=== PATIENT | female | born 1990 | race Caucasian/White ===

== ENCOUNTER 2019-08-02 19:34 | Outpatient (CLI) | payer OTHER ==
[~2019-08-02] VITALS: Ht 167.6 cm; Wt 140.0 kg
[2019-08-02 19:35] VITALS: BP 138/71
[2019-08-02] MEDS ORDERED: PREN-3 PO (20:01)
[2019-08-02] MEDS ORDERED: ASPI-515 PO (20:01)
== END 2019-08-02 20:20 | disposition home or self-care (01) ==
LOC: LDOP 19:34
PROVIDERS: ATTEND Obstetrics & Gynecology Maternal & Fetal Medicine
DX: O26.892 Other specified pregnancy related conditions, second trimester (principal); R10.9 Unspecified abdominal pain; Z3A.22 22 weeks gestation of pregnancy
CPT/HCPCS: 99201; G0463

== ENCOUNTER 2019-11-09 10:44 | Inpatient (IN) | payer OTHER ==
[~2019-11-09] VITALS: Ht 167.6 cm; Wt 150.0 kg
[~2019-11-09 10:44] MED LIST: ASPI-515 PO; PREN-3 PO
[2019-11-09 11:10] VITALS: BP 141/76
[2019-11-09] MEDS ORDERED: LEVO100T PO (11:18)
[2019-11-09] MEDS ORDERED: LEVO200T PO (11:18)
[2019-11-09] MEDS ORDERED: METF500T17 PO (11:18)
[2019-11-09 11:25] LABS: BASOPHILS # (AUTO) 0.05 x10^3/uL (0-0.1); BASOPHILS % (AUTO) 1 % (0-1); EOSINOPHILS # (AUTO) 0.07 x10^3/uL (0-0.4); EOSINOPHILS % (AUTO) 1 % (1-7); LYMPHOCYTES # (AUTO) 2.31 x10^3/uL (1-3.4); LYMPHOCYTES % (AUTO) 23 % (22-44); MD NO; MEAN CORPUSCULAR HEMOGLOBIN 27.2 pg (27.0-34.8); MEAN CORPUSCULAR VOLUME 82.5 fL (80-100); MEAN PLATELET VOLUME 9.5 fL (7.4-10.4); MONOCYTES % (AUTO) 6 % (2-9); NEUTROPHILS # (AUTO) 6.92 x10^3/uL (1.8-6.8); NEUTROPHILS % (AUTO) 70 % (42-75); PLATELET COUNT 260 x10^3/uL (130-400); RED BLOOD COUNT 4.14 x10^6/uL (3.82-5.3); RED CELL DISTRIBUTION WIDTH 14.9 % (9.6-15.2)
[2019-11-09 11:29] LABS: MICROSCOPIC INDICATED
[2019-11-09 11:31] LABS: CREATININE,URINE RANDOM 81.1 mg/dL
[2019-11-09 11:35] LABS: ALANINE AMINOTRANSFERASE 12 U/L (12-78); ALBUMIN 2.4 g/dL (3.4-5.0); ANION GAP 12 mmol/L (5-15); CHLORIDE 108 mmol/L (98-107); CREATININE 0.46 mg/dL (0.55-1.02)
[2019-11-09 11:38] LABS: ALKALINE PHOSPHATASE 100 U/L (45-117); BILIRUBIN, DIRECT < 0.1 mg/dL (0.1-0.2); BILIRUBIN,TOTAL 0.2 mg/dL (0.2-1.0); TOTAL PROTEIN 6.8 g/dL (6.4-8.2)
[2019-11-09] MEDS: D5%-LACTATED RINGERS 1,000 ML IV SCH ×2 (13:12→21:12)
[2019-11-09] MEDS ORDERED: OXYTOCIN 30U/ 0.9% NaCL 500ML 500 ML IV ONE (13:12)
[2019-11-09] MEDS: LACTATED RINGERS 1,000 ML IV SCH ×2 (13:28→19:55)
[2019-11-09] MEDS ORDERED: SODIUM CHLORIDE FLUSH 10ML SYR IVF PRN (13:30)
[2019-11-09] MEDS ORDERED: ONDANSETRON 2MG/ML, 2ML IVPush PRN (13:30)
[2019-11-09] MEDS ORDERED: TERBUTALINE 1 MG/ML, 1ML IVPush PRN (13:30)
[2019-11-09] MEDS ORDERED: FENTANYL PF 100 MCG/2ML IVPush PRN (13:30)
[2019-11-09] MEDS ORDERED: TERBUTALINE 1 MG/ML, 1ML SQ PRN (13:30)
[2019-11-09] MEDS ORDERED: MISOPROSTOL 200 MCG TABLET ONE (13:32)
[2019-11-09] MEDS ORDERED: OXYTOCIN 30U/ 0.9% NaCL 500ML 500 ML ONE (13:32)
[2019-11-09] MEDS ORDERED: LIDOCAINE 1%, 20ML ONE (13:32)
[2019-11-09] MEDS ORDERED: MISOPROSTOL 25 MCG TABLET ONE ×3 (13:32→23:18)
[2019-11-09] MEDS ORDERED: NEWBORN KIT ONE (13:32)
[2019-11-09] MEDS: MISOPROSTOL 25 MCG TABLET VG PRN ×3 (13:41→23:20)
[2019-11-09] MEDS ORDERED: ACETAMINOPHEN 325 MG TABLET PO PRN (21:30)
[2019-11-09] MEDS ORDERED: ACETAMINOPHEN 325 MG TABLET ONE (21:33)
[2019-11-10] MEDS ORDERED: MISOPROSTOL 25 MCG TABLET ONE (03:28)
[2019-11-10] MEDS: D5%-LACTATED RINGERS 1,000 ML IV SCH ×3 (05:12→21:12)
[2019-11-10] MEDS ORDERED: FENTANYL PF 100 MCG/2ML ONE ×2 (07:48→23:04)
[2019-11-10] MEDS ORDERED: FENTANYL/BUPIV./NS/PF 250 ML EPIDCONT SCH ×2 (08:38→11:17)
[2019-11-10] MEDS: LACTATED RINGERS 1,000 ML IV SCH ×5 (08:47→19:17)
[2019-11-10] MEDS ORDERED: FENTANYL PF 500 MCG, BUPIVACAINE/PF 0.5%, 30ML 62.5 ML in SODIUM CHLORIDE 0.9% 177.5 ML EPIDCONT SCH (09:00)
[2019-11-10] MEDS ORDERED: BUPIVACAINE 0.25% ONE ×2 (09:17→23:04)
[2019-11-10] MEDS ORDERED: DIPHENHYDRAMINE 50 MG/ML, 1ML IVPush PRN (11:30)
[2019-11-10] MEDS ORDERED: LACTATED RINGERS 1,000 ML IVBOLUS PRN (11:30)
[2019-11-10] MEDS ORDERED: LABETALOL 5MG/ML, 20ML IVPush PRN ×3 (11:30)
[2019-11-10] MEDS ORDERED: ONDANSETRON 2MG/ML, 2ML IVPush PRN (11:30)
[2019-11-10] MEDS ORDERED: NALOXONE 0.4 MG/ML, 1ML IVPush PRN (11:30)
[2019-11-10] MEDS ORDERED: hydrALAzine 20 MG/ML, 1ML IVPush ONE (11:30)
[2019-11-10] MEDS ORDERED: EPHEDRINE 50 MG/ML, 1ML IVPush PRN (11:30)
[2019-11-10] MEDS ORDERED: OXYTOCIN 30U/ 0.9% NaCL 500ML 500 ML IV PRN (13:23)
[2019-11-10 19:30] VITALS: BP 131/60
[2019-11-10] MEDS ORDERED: OXYTOCIN 30U/ 0.9% NaCL 500ML 500 ML IV SCH (23:39)
[2019-11-11] VITALS (7 sets, daily range): BP systolic 126–153; BP diastolic 71–95
[2019-11-11] MEDS ORDERED: CARBOPROST TROMETHAMINE 250 MCG/ML, 1ML IM PRN
[2019-11-11] MEDS ORDERED: OXYcodone/APAP 5/325MG TABLET PO PRN
[2019-11-11] MEDS ORDERED: SIMETHICONE 80 MG CHEW TAB PO PRN
[2019-11-11] MEDS ORDERED: RHOGAM FROM BLOOD BANK 1 NOTE EA IM/IV ONE
[2019-11-11] MEDS ORDERED: DOCUSATE 100 MG CAPSULE PO PRN
[2019-11-11] MEDS ORDERED: ONDANSETRON 2MG/ML, 2ML IV PRN
[2019-11-11] MEDS ORDERED: MISOPROSTOL 200 MCG TABLET PR PRN
[2019-11-11] MEDS: IBUPROFEN 800 MG TABLET PO PRN ×3 (05:53→23:01)
[2019-11-11 07:45] LABS: MEAN CORPUSCULAR HEMOGLOBIN 27.2 pg (27.0-34.8); MEAN CORPUSCULAR HGB CONC 32.4 g/dL (32.4-35.8); MEAN CORPUSCULAR VOLUME 83.9 fL (80-100); MEAN PLATELET VOLUME 9.1 fL (7.4-10.4); PLATELET COUNT 267 x10^3/uL (130-400); RED BLOOD COUNT 4.18 x10^6/uL (3.82-5.3); RED CELL DISTRIBUTION WIDTH 14.7 % (9.6-15.2)
[2019-11-11 08:37] LABS: BASOPHILS # (AUTO) 0.03 x10^3/uL (0-0.1); BASOPHILS % (AUTO) 0 % (0-1); EOSINOPHILS # (AUTO) 0.04 x10^3/uL (0-0.4); EOSINOPHILS % (AUTO) 0 % (1-7); LYMPHOCYTES # (AUTO) 2.57 x10^3/uL (1-3.4); LYMPHOCYTES % (AUTO) 18 % (22-44); MD SCAN; MONOCYTES # (AUTO) 0.62 x10^3/uL (0.2-0.8); MONOCYTES % (AUTO) 4 % (2-9); NEUTROPHILS # (AUTO) 11.15 x10^3/uL (1.8-6.8); NEUTROPHILS % (AUTO) 77 % (42-75)
[2019-11-11] MEDS: PRENATAL VIT/IRON/FA 1 EACH TABLET PO SCH ×2 (09:00→22:27)
[2019-11-12] MEDS: OXYcodone/APAP 5/325MG TABLET PO PRN ×3 (06:38→17:16)
[2019-11-12] MEDS: IBUPROFEN 800 MG TABLET PO PRN ×2 (06:38→17:16)
[2019-11-12 09:49] VITALS: BP 143/88
[2019-11-12] MEDS ORDERED: IBUP-1222 PO (13:47)
[2019-11-12] MEDS ORDERED: OXYC-302 PO (13:48)
[2019-11-12] MEDS ORDERED: DIPH,PERTUSS(ACELL),TET VAC/PF NC IM-VACC ONE (16:23)
[2019-11-12] MEDS ORDERED: MEASLES,MUMPS&RUBELLA VACC/PF 0.5 ML SQ-VACC ONE (16:30)
[2019-11-12 17:03] VITALS: BP 153/97
== END 2019-11-12 22:30 | disposition home or self-care (01) | DRG 807 ==
LOC: LDOP 10:44 → LDIP 13:29 → 2NW 11-11 00:53
PROVIDERS: ADMIT Obstetrics & Gynecology Maternal & Fetal Medicine; ATTEND Obstetrics & Gynecology Maternal & Fetal Medicine
PROC: 10E0XZZ Delivery of Products of Conception, External Approach (ICD-10-PCS; principal; 2019-11-10)
PROC: 0KQM0ZZ Repair Perineum Muscle, Open Approach (ICD-10-PCS; 2019-11-10)
DX: O11.4 Pre-existing hypertension with pre-eclampsia, complicating childbirth (principal); Z37.0 Single live birth; O99.52 Diseases of the respiratory system complicating childbirth; O99.214 Obesity complicating childbirth; E66.01 Morbid (severe) obesity due to excess calories; O70.1 Second degree perineal laceration during delivery; Z3A.37 37 weeks gestation of pregnancy; J45.909 Unspecified asthma, uncomplicated; Z98.890 Other specified postprocedural states; Z88.0 Allergy status to penicillin
CPT/HCPCS: 36415; 80053; 81001; 82248; 82570; 84156; 84550; 85025; 86592; 86850; 86900; G0378; J3010; J2590; J7120